=== PATIENT | female | born 1995 | race Caucasian/White ===

== ENCOUNTER 2022-12-23 21:34 | Emergency (ER) | payer BC ==
[2022-12-23 23:08] LABS: Appearance Clear (Clear); Bacteria Few /HPF (None Seen); Bilirubin Negative (Negative); Blood Negative (Negative); Epithelial Cells Few /HPF (None Seen); Glucose, Urine Negative (Negative); Hyaline Casts NONE SEEN /LPF (0-2); Ketones Negative (Negative); Leukocyte Esterase Small (Negative); Nitrite Negative (Negative); Ph 6.5 (4.6-8.0); Protein,Urine Dip Negative (Negative); Urobilinogen 0.2 mg/dL (0.2)
[2022-12-23 23:09] LABS: ADD URINE CULTURE? NO (NO)
--- NOTE | 2022-12-24 00:53 | ERPHSYRPT ---
- History of Present Illness Time Seen by Provider: 12/24/22 00:47 Source: patient, family Exam Limitations: no limitations Patient Subjective Stated Complaint: pt states "about [place] started gradually noticing blurry vision in both eyes that now is full blurry on right side and bottom half of left side" Triage Nursing Assessment: pt ambulated from waiting room to bathroom, stood on scales, and into room 10 independently with slow steady gait. she is alert and oriented times three, able to move all extremities, speaks in complete sentences, with resp even and unlabored. obvious belly. she denies any pain, lightheadedness, dizziness, sob, n/v/d, urinary symptoms, or any other ill feelings except bilat blurry vision. pupils 4mm equal, round, and reactive to light. sclera white, no drainage or redness noted. she reports that her entire right visual field is blurry (unable to type on her phone) and that the lower half of her left visual field is blurry. she reports it starting gradually approx 1 hr. she was seated and not exerting self when started. OB nurse called and placing pt on toco monitor for observation. FHR 141 and after 5mins no contractions noted. she lives in [facility] and her OB is located there. she was working at the [employer]. spouse with pt. she reports that one time when she was much younger a similar thing happened and within 30mins she had a migraine but continues to deny head pain at this time. she also reports that one time when she was much younger she fainted. no other medical history Physician History: hx confirmed independently with spouse in ER. Lady is 32 weeks and noted visual symptoms with gradual change today over an hour or so and then resolved. Hx of migraine but no headahce with this. 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 Normal FHT and [place] eval by OB and no abd pain of bleeding or preg symptoms of concern. Discussed risks and benefit with pt and family of CBC and CMP and UA and Telenuero and they wished to proceed - results discussed. visual acuity 20/20 bilaterally and visual buitrago intact. Timing/Duration: today Severity: mild Modifying Factors: Improves With: nothing Associated Symptoms: denies symptoms Allergies/Adverse Reactions: No Known Drug Allergies Allergy (Unverified 12/23/22 21:44) Home Medications: No Reportable Medications [No Reported Medications] 12/23/22 [History] Hx Tetanus, Diphtheria Vaccination/Date Given: Yes Hx Influenza Vaccination/Date Given: No Hx Pneumococcal Vaccination/Date Given: No Immunizations Up to Date: Yes Travel Risk - International Travel Have you traveled outside of the country in past 3 weeks: No - Coronavirus Screening Are you exhibiting any of the following symptoms?: No Close contact with a COVID-19 positive Pt in past 14-21 Days: No - Vaccine Status Have you recieved a Covid-19 vaccination: Yes 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: [employer] - Vaccination Dates Date of 2cond Vaccination (if applicable): 2020 - Review of Systems Constitutional: No Fever, No Chills Eyes: No Symptoms Ears, Nose, & Throat: No Symptoms Respiratory: No Cough, No Dyspnea Cardiac: No Chest Pain, No Edema, No Syncope Abdominal/Gastrointestinal: No Abdominal Pain, No Nausea, No Vomiting, No Diarrhea Genitourinary Symptoms: No Dysuria Musculoskeletal: No Back Pain, No Neck Pain Skin: No Rash Neurological: No Dizziness, No Focal Weakness, No Sensory Changes Psychological: No Symptoms Endocrine: No Symptoms Hematologic/Lymphatic: No Symptoms Immunological/Allergic: No Symptoms All Other Systems: Reviewed and Negative - Past Medical History Pertinent Past Medical History: Yes Neurological History: Migraines ENT History: No Pertinent History Cardiac History: Other Respiratory History: No Pertinent History Endocrine Medical History: No Pertinent History Musculoskeletal History: No Pertinent History GI Medical History: No Pertinent History History: No Pertinent History Psycho-Social History: No Pertinent History Female Reproductive Disorders: No Pertinent History Other Medical History: migraine x1, syncope x1 - Past Surgical History Past Surgical History: No Neuro Surgical History: No Pertinent History Cardiac: No Pertinent History Respiratory: No Pertinent History Gastrointestinal: No Pertinent History Genitourinary: No Pertinent History Musculoskeletal: No Pertinent History Female Surgical History: No Pertinent History - Social History Smoking Status: Never smoker Exposure to second hand smoke: No Drug Use: none Patient Lives Alone: No - Female History Hx Last Menstrual Period: Apr Hx Now: Yes Gestational Age: 34 w 4 d - Nursing Vital Signs Nursing Vital Signs: Initial Vital Signs Temperature 97.1 F 12/23/22 21:47 Pulse Rate 76 05/27/23 21:47 Respiratory Rate 20 12/23/22 21:47 Blood Pressure 103/53 12/23/22 21:47 O2 Sat by Pulse Oximetry 99 12/23/22 21:47 Pain Scale Pain Intensity 0 - Physical Exam SpO2: 100 - Course Nursing assessment & vital signs reviewed: Yes Ordered Tests: Active Orders 24 hr Category Date Time Status UA W/RFX UR CULTURE Stat Lab 12/23/22 22:41 Completed Lab/Rad Data: Laboratory Results 12/23/22 Range/Units 22:41 Urine Color Yellow (Yellow) Urine Appearance Clear (Clear) Urine pH 6.5 (4.6-8.0) Ur Specific [place] 1.010 (1.005-1.030) Urine Protein Negative (Negative) Urine Glucose (UA) Negative (Negative) mg/dL Urine Ketones Negative (Negative) Urine Blood Negative (Negative) Urine Nitrite Negative (Negative) Urine Bilirubin Negative (Negative) Urine Urobilinogen 0.2 (0.2) mg/dL Ur Leukocyte Esterase Small A (Negative) U Hyaline Cast (Auto) NONE SEEN (0-2) /LPF Urine Microscopic RBC 6-10 A (0-5) /HPF Urine Microscopic WBC 6-10 A (0-5) /HPF Ur Epithelial Cells Few (None Seen) /HPF Urine Bacteria Few A (None Seen) /HPF Urine Culture Reflexed NO (NO) - Progress Progress: improved, re-examined Progress Note: 12/24/22 00:52 consulted teleneuro and they advised probaly an occular migraine and not CVA or TIA and that MRI could be done outpt with her PMD f/u. Pt and family are also advised and they are comfortable with this plan and have the capacity to make this choice. 12/24/22 01:05 PT and family declined the CT due to and prefer to opt out of CT and instead have a outpt MRI with their and [facility] neurologist agrees with this approach. He also added that Magnesium can be useful for her future headaches or migraine symptoms. 12/24/22 01:17 In addition the slight LE on the ua and borderline WBC in ua and trac eblood ( had cervical check just prior to spec which may have irritated - were discussed with pt and spouse and since their are no symptoms they wish to repeat with their and then decide on AB. or further eval. Counseled pt/family regarding: lab results, diagnosis, need for follow-up Medical Desision Making - Independent Historian Additional History obtained from: Spouse - Discussion of managment Care discussed with:: specialist Reviewed:: Test results Agreed on:: Treatment plan, need for follow-up - Diagnostic Testing Diagnostic test were ordered, analyzed, and reviewed by me: Yes - Risk of complications Low Risk: Low risk of morbidity from additional dx testing or treatment - Departure Departure Disposition: Home Clinical Impression: symptoms consistent with occular migrain, asymptomatic trace heme and wbc in urine Condition: Good Critical Care Time: No Referrals: Provider,Unknown [Primary Care Provider] - Follow up/PCP as directed Instructions: Migraines (DC), Blood in the Urine (Hematuria), Adult (DC) Additional Instructions: follow-up with your DrHugh to recheck urine which has a trace of blood but was just after the cervix check but also a trace sign for possible infection of urine although you have no symptoms - sometimes this is still treated in and good to discuss with your OB. Followup with your to discuss outpt non contrast MRI for your return of migraine symptoms and to help rule out other conditions. There also was the advice form the neurologist that magnesium IV can be used to treat these migraines in your case and will not harm the baby. Return meantime if any symptoms or concerns.
[2022-12-24 01:39] VITALS: BP 110/62; PULSE 83; O2SAT 98
== END 2022-12-24 01:40 | disposition home or self-care (01) ==
LOC: ED 21:34
DX: G43.109 Migraine with aura, not intractable, without status migrainosus (principal); R31.9 Hematuria, unspecified; R82.998 Other abnormal findings in urine; Z33.1 Pregnant state, incidental
CPT/HCPCS: 81001; 99282